=== PATIENT | female | born 1960 | race Two or more races ===

== ENCOUNTER 2024-09-23 12:16 | Emergency (ER) | payer OTHER ==
[~2024-09-23] VITALS: Ht 167.6 cm; Wt 68.0 kg
[2024-09-23 12:17] VITALS: O2SAT 96
[2024-09-23 12:19] VITALS: BP 167/116; TEMP 37.2
[2024-09-23 16:57] LABS: EOSINOPHILS % 1.1 % (0.0-5.0); HEMATOCRIT. 41.1 % (36.0-48.0); HEMOGLOBIN. 13.7 g/dL (12.0-16.0); LYMPHOCYTES % 11.9 % (20.0-50.0); MEAN CORPUSCULAR HEMOGLOBIN 29.1 pg (28.0-32.0); MEAN CORPUSCULAR HGB CONC 33.3 g/dL (31.0-37.0); MEAN CORPUSCULAR VOLUME 87.5 fL (81.0-99.0); MEAN PLATELET VOLUME 8.9 fl (7.4-10.4); MONOCYTES % 13.6 % (2.0-8.0); NEUTROPHILS % 72.4 % (40.0-76.0); PLATELET 319 x1000/uL (130-400); RED BLOOD CELL COUNT 4.69 mill/uL (4.2-5.4); RED CELL DISTRIBUTION WIDTH 14.4 % (11.6-14.6); WHITE BLOOD COUNT 11.5 x1000/uL (4.5-11.0)
[2024-09-23] MEDS: PREDNISONE 20MG TABLET PO ONE (16:57)
[2024-09-23] MEDS: ALBUTEROL (0.5%) 2.5MG/0.5ML NEB HHN ONE (17:00)
[2024-09-23 17:01] VITALS: PULSE 83; RESP 18; O2SAT 93
[2024-09-23] MEDS: IPRATROPIUM BROMIDE (0.02%) 0.5MG/2.5ML NEB HHN ONE (17:01)
[2024-09-23 17:03] LABS: CHLORIDE 100 mEq/L (98-107); POTASSIUM 3.4 mEq/L (3.5-5.1); SODIUM 138 mEq/L (136-145)
[2024-09-23 17:04] LABS: CARBON DIOXIDE 30 mEq/L (21-32)
[2024-09-23 17:05] LABS: CALCIUM 9.2 mg/dL (8.7-10.4)
[2024-09-23 17:09] LABS: CREATININE 0.7 mg/dL (0.6-1.0); GLUCOSE 118 mg/dL (70-105)
[2024-09-23 17:10] LABS: UREA NITROGEN BLOOD 13 mg/dL (9-23)
[2024-09-23] MEDS ORDERED: FLUT1DIS3 INH (17:37)
[2024-09-23] MEDS ORDERED: P50 MT (17:37)
[2024-09-23] MEDS ORDERED: ALBU18HF2 IH (17:37)
== END 2024-09-23 18:27 | disposition home or self-care (01) ==
LOC: ER 12:16
DX: J98.01 Acute bronchospasm (principal); I10 Essential (primary) hypertension; I25.2 Old myocardial infarction; Z20.822 Contact with and (suspected) exposure to COVID-19; Z98.890 Other specified postprocedural states; R05.9 Cough, unspecified
CPT/HCPCS: 80048; 83880; 85025; 87804 ×2; 36415; 71045; 94640; 94070; 99291; 87426; J7512; Z7610 ×3